=== PATIENT | male | born 1985 | race Caucasian/White ===

== ENCOUNTER 2017-01-12 20:26 | Emergency (ER) | payer BC ==
[~2017-01-12 20:26] MED LIST: ESOM40CA PO; LORA-434 PO; TRAZ150T49 PO; no-kno
[2017-01-12 20:40] VITALS: BP 99/48
[2017-01-12] MEDS ORDERED: LIDOCAINE 2%/EPI 1:100,000 20 ML VIAL. IJ ONE (21:30)
[2017-01-12] MEDS ORDERED: DIPHTH,PERTUSS(ACELL),TET TOX 0.5 ML DISP.SYRIN. VAX IM ONE (21:30)
--- NOTE | 2017-01-12 22:50 | PHYS DOC ---
Past History Past Medical History: Anxiety, Depression Past Surgical History: No Surgical History Smoking: Non-smoker Alcohol Use: None Drug Use: None Adult General Chief Complaint Chief Complaint: LACERATION/AVULSION HPI HPI Patient is a 31 year old male who presents with right thumb laceration. States he cut it on a broken light fixture just prior to arrival. He is right handed. Last tetanus unknown. Review of Systems Review of Systems Constitutional: Denies fever or chills HENT: Denies nasal congestion or sore throat Respiratory: Denies cough or shortness of breath Cardiovascular: Denies chest pain GI: Denies abdominal pain, nausea, vomiting Integument: Reports laceration. Neurologic: Denies headache Current Medications Current Medications Current Medications Medications (Trade) Dose Ordered Sig/Yadira Start Time Stop Time Status Last Admin Dose Admin Diphtheria/ Tetanus/Acell Pertussis (Boostrix) 0.5 ml ONCE ONCE 01/12/17 21:30 01/12/17 21:31 DC Lidocaine/ Epinephrine (Xylocaine 2%-Epi 1:100,000) 20 ml 1X ONCE 01/12/17 21:30 01/12/17 21:31 DC 01/12/17 21:50 20 ML Allergies Allergies Allergies Coded Allergies Type Severity Reaction Last Updated Verified No Known Drug Allergies 04/09/15 No Physical Exam Physical Exam Constitutional: Well developed, well nourished, no acute distress, non-toxic appearance. HENT: Normocephalic, atraumatic, bilateral external ears normal, oropharynx moist, nose normal. Eyes: conjunctiva normal, no discharge. Cardiovascular: no edema. Lungs & Thorax: no respiratory distress. Abdomen: nondistended. Skin: see extremity exam below Extremities: right thumb with 2 cm flap laceration over dorsal IP joint, intact ROM with flexion/extension, sensation intact to fingertip, cap refill < 2 sec, radial pulse 2+. Neurologic: Alert and oriented X 3 Current Patient Data Vital Signs Vital Signs Date Time Temp Pulse Resp B/P (MAP) Pulse Ox O2 Delivery O2 Flow Rate FiO2 01/12/17 20:40 98.3 64 18 96 Room Air EKG EKG [] Radiology/Procedures Radiology/Procedures [] Course & Med Decision Making Course & Med Decision Making Pertinent Labs and Imaging studies reviewed. (See chart for details) The patient presents with thumb laceration. Tetanus updated. Wound irrigated by ED RN. I ordered XR to evaluate for glass foreign body. He states the broken glass is very thick & he is certain that no fragments broke off into the wound. He declines imaging. Lac repair by me. Dressing & alumafoam splint applied by RN. Recommend wound care, follow up in 7 days for suture removal. Come back for wound infection or otherwise worsening condition. Discharged home in stable & improved condition. [] Dragon Disclaimer Dragon Disclaimer This chart was dictated in whole or in part using Voice Recognition software in a busy, high-work load, and often noisy Emergency Department environment. It may contain unintended and wholly unrecognized errors or omissions. Laceration Repair Lac Repair Indication: thumb laceration Procedure: The patient was placed in the appropriate position and anesthesia around the laceration was achieved by digital block with 2% lidocaine with epinephrine. Had to inject additional lidocaine into the wound itself as digital block was effective to the entire thumb except the flap portion of the laceration The area was then irrigated with a copious amount of NS by the ED RN. The laceration was repaired using 4 simple interrupted sutures with 5-0 ethilon. The wound area was then dressed with gauze & an alumafoam splint. Total repaired wound length: 2 cm. The patient tolerated the procedure well. Complications: none. Departure Departure: Impression: Primary Impression: Thumb laceration Disposition: 01 HOME, SELF-CARE Condition: STABLE Referrals: RUPALI CARTER (PCP) Patient Instructions: Laceration Care, Adult, [id number] Additional Instructions: You were seen in the emergency department today for thumb laceration. It was repaired with sutures. Please keep clean and dry. Wash twice a day with soap and water and apply triple antibiotic ointment. Cover with gauze while working. Use the splint to try to prevent excessive bending. Follow-up here or with primary care in 7 days for removal of sutures. Come back sooner for fever, redness, warmth, swelling around the wound, any otherwise worsening condition UZMA CASTANO MD Jan 12, 2017 22:50
== END 2017-01-12 22:55 | disposition home or self-care (01) ==
LOC: ER 20:26
DX: S61.011A Laceration without foreign body of right thumb without damage to nail, initial encounter (principal); W25.XXXA Contact with sharp glass, initial encounter; Y93.89 Activity, other specified; Y92.89 Other specified places as the place of occurrence of the external cause; Y99.8 Other external cause status
CPT/HCPCS: 12001; 90471; 90715; 99284-25

== ENCOUNTER → 2018-12-15 | Outpatient (CLI) | payer OTHER ==
[~2018-12-15] MED LIST changes: +IOHEXOL 240 MG/ML 50ML VIAL. ONE; +IOHEXOL 300 MG/ML 75 ML VIAL. IV ONE; +LORA-254 PO; -LORA-434 PO
--- NOTE | 2018-12-15 15:40 | RAD ---
CT ABD PELV W/ORAL IV CONTRAST Indication: Left lower quadrant abdominal pain. Exposure: One or more of the following individualized dose reduction techniques were utilized for this examination: 1. Automated exposure control 2. Adjustment of the mA and/or kV according to patient size 3. Use of iterative reconstruction technique. Technique: Intravenous contrast was given. Oral contrast was given. Lung bases are clear. Lung bases are essentially clear. No evidence of pericardial effusion. Liver is unremarkable. Spleen is unremarkable. No evidence of pancreatic abnormality. No adrenal mass. Kidneys enhance symmetrically without evidence of hydronephrosis or mass. No calcified gallstone. Aorta is nonaneurysmal. No significant lymph node enlargement. No significant small bowel distention. No evidence of acute colitis. There is moderate retained stool in the colon. Appendix is normal. No evidence of pneumoperitoneum or ascites. Prostate gland measures 3.5 x 4.2 cm transverse dimensions. No significant urinary bladder wall thickening. No evidence of aggressive bone destruction. IMPRESSION: No evidence of acute abnormality in the abdomen or pelvis. Moderate stool in the colon. Electronically signed by: Arnlodo Marquis MD (12/15/2018 3:36 PM) [id number]
== END | disposition home or self-care (01) ==
LOC: CT 12:59
PROVIDERS: ATTEND Registered Nurse
DX: R10.32 Left lower quadrant pain (principal)
CPT/HCPCS: 74177; Q9967

== ENCOUNTER 2019-12-27 21:28 | Emergency (ER) | payer OTHER ==
[~2019-12-27] VITALS: Ht 185.4 cm; Wt 105.8 kg
[~2019-12-27 21:28] MED LIST changes: -IOHEXOL 240 MG/ML 50ML VIAL. ONE; -IOHEXOL 300 MG/ML 75 ML VIAL. IV ONE
--- NOTE | 2019-12-27 21:36 | PHYS DOC ---
Past History Past Medical History: Anxiety, Depression Past Surgical History: No Surgical History Smoking: Non-smoker Alcohol Use: None Drug Use: None General Adult HPI: HPI: ".. I ve be short of breath... all day...".." I just seen [facility] yesterday.. and he started me on Wellbutrin and Aderall again... I have been off my meds for 6 months... and I think .. I am having a stress reaction... my sister had to go back in the hospital... and lots of other stressful things in my life...".. " I just feel maybe a little short of breath..and little wheeze... " Patient is a 34 year old male who presents with above hx and complaints dyspnea and anxiety. Patient just recently restarted on Adderall and Wellbutrin after being off 6 months. Patient has long history of anxiety and depression. Patient has been under increased social pressures and family stresses. Sister readmitted to hospital at after complication. Patient denies any history of fever or chills. Has had some wheezing. No specific ill contacts. No history of travel. No history of immunosuppression. Follows with Nik [facility]. Patient reports he does use caffeine products to excess. Review of Systems: Review of Systems: Constitutional: Denies fever or chills Eyes: Denies change in visual acuity HENT: Denies nasal congestion or sore throat Respiratory: Complaints of dyspnea., Cardiovascular: Denies chest pain or edema GI: Denies abdominal pain, nausea, vomiting, bloody stools or diarrhea : Denies dysuria Musculoskeletal: Denies back pain or joint pain Integument: Denies rash Neurologic: Denies headache, focal weakness or sensory changes Endocrine: Denies polyuria or polydipsia Lymphatic: Denies swollen glands Psychiatric: Complaints of depression and anxiety Heart Score: HEART Score for Chest Pain: HEART Score for Chest Pain Response (Comments) Value History Moderately Suspicious 1 ECG Normal 0 Age < 45 0 Risk Factors No Risk Factors 0 Troponin < Normal Limit 0 Total 1 Risk Factors: Risk Factors: DM, Current or recent (<one month) smoker, HTN, HLP, family history of CAD, obesity. Risk Scores: Score 0 - 3: 2.5% MACE over next 6 weeks - Discharge Home Score 4 - 6: 20.3% MACE over next 6 weeks - Admit for Clinical Observation Score 7 - 10: 72.7% MACE over next 6 weeks - Early Invasive Strategies Family History: Family History: Noncontributory to presentation Current Medications: Current Meds: See nursing for home meds Allergies: Allergies: Allergies Coded Allergies Type Severity Reaction Last Updated Verified No Known Drug Allergies 04/09/15 No Physical Exam: PE: Constitutional: Well developed, well nourished, no acute distress, non-toxic appearance. [] HENT: Normocephalic, atraumatic, bilateral external ears normal, oropharynx reta st, no oral exudates, nose normal. [] Eyes: PERRLA, EOMI, conjunctiva normal, no discharge. [] Neck: Normal range of motion, no tenderness, supple, no stridor. [] Cardiovascular:Heart rate regular rhythm, no murmur [. Occasional PVC per monitor] Lungs & Thorax: Bilateral breath sounds equal apex with a few scattered wheezes auscultation [] Abdomen: Bowel sounds normal, soft, no tenderness, no masses, no pulsatile masses. [] Skin: Warm, dry, no erythema, no rash. [] Back: No tenderness, no CVA tenderness. [] Extremities: No tenderness, no cyanosis, no clubbing, ROM intact, no edema. [] No cording appreciated Neurologic: Alert and oriented X 3, normal motor function, normal sensory function, no focal deficits noted. [] Psychologic: Affect anxious judgement normal, mood normal. [] EKG: EKG: My interpretation of EKG shows a sinus rhythm at 73 bpm. Does have an occasional PVC. [] Radiology/Procedures: Radiology/Procedures: [][address] [address] IMAGING REPORT Signed PATIENT: ALAINA CHU ACCOUNT: [id number] : 1985 LOCATION: ER AGE: 34 SEX: M EXAM STATUS: REG ER ORD. PHYSICIAN: TONI VIEIRA MD REASON: Dyspnea PROCEDURE: CHEST PA & LATERAL Exam: Chest 2 views INDICATION: Dyspnea TECHNIQUE: Frontal and lateral views the chest Comparisons: None FINDINGS: The cardiomediastinal silhouette and pulmonary vessels are within normal limits. The lung and pleural spaces are clear. IMPRESSION: No acute cardiopulmonary process. Electronically signed by: Constantine Wiley MD (12/27/2019 10:17 PM) [id number] DICTATED AND SIGNED BY: CONSTANTINE WILEY MD DATE: 12/27/19 2217 CC: TONI VIEIRA MD; RUPALI CARTER ~ Course & Med Decision Making: Course & Med Decision Making Pertinent Labs and Imaging studies reviewed. (See chart for details) Patient to follow-up with . [facility]. Recheck blood pressure in both arms on follow-up. Patient must reduce caffeine intake. Patient return if any concerns. Use MDI 2 puffs 4 times a day. Impression: 1. History of anxiety 2. Reactive airway-viral versus allergies 3. Excessive caffeine use 4. Mild elevation in blood pressure-recheck on follow-up ( No previous hx HTN) 5. PVC's 6. Hx. of ADHD 7. Hx. Depression [] Dragon Disclaimer: Dragon Disclaimer: This electronic medical record was generated, in whole or in part, using a voice recognition dictation system. Departure Departure: Disposition: 01 HOME/RESIDENCE PRIOR TO ADM Condition: STABLE Referrals: RUPALI CARTER (PCP) Justification of Admission: Justification of Admission: Justification of Admission Dx: N/A Dragon Disclaimer This chart was dictated in whole or in part using Voice Recognition software in a busy, high-work load, and often noisy Emergency Department environment. It may contain unintended and wholly unrecognized errors or omissions. Dragon Disclaimer This chart was dictated in whole or in part using Voice Recognition software in a busy, high-work load, and often noisy Emergency Department environment. It may contain unintended and wholly unrecognized errors or omissions. TONI VIEIRA MD Dec 27, 2019 21:35
[2019-12-27 22:08] LABS: BASO # 0.1 x10^3/uL (0.0-0.2); BASO % 1 % (0-3); EOS # 0.1 x10^3/uL (0.0-0.7); EOS % 2 % (0-3); HEMATOCRIT 45.1 % (39.0-53.0); HEMOGLOBIN 15.5 g/dL (13.0-17.5); LYMPH # 2.1 x10^3/uL (1.0-4.8); LYMPH % 31 % (24-48); MEAN CORPUSCULAR HEMOGLOBIN 30 pg (25-35); MEAN CORPUSCULAR HGB CONC 34 g/dL (31-37); MEAN CORPUSCULAR VOLUME 88 fL (79-100); MONO # 0.7 x10^3/uL (0.0-1.1); MONO % 11 % (0-9); NEUT # 3.7 x10^3uL (1.8-7.7); NEUT % 55 % (31-73); PLATELET COUNT 205 x10^3/uL (140-400); RED BLOOD COUNT 5.12 x10^6/uL (4.30-5.70); RED CELL DISTRIBUTION WIDTH 13.1 % (11.5-14.5); WHITE BLOOD COUNT 6.7 x10^3/uL (4.0-11.0)
[2019-12-27 22:09] LABS: CALCIUM 9.2 mg/dL (8.5-10.1); CREATININE 1.2 mg/dL (0.7-1.3); GFR 69.3; POTASSIUM 3.7 mmol/L (3.5-5.1)
--- NOTE | 2019-12-27 22:19 | EKG ---
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
--- NOTE | 2019-12-27 22:20 | RAD ---
Exam: Chest 2 views INDICATION: Dyspnea TECHNIQUE: Frontal and lateral views the chest Comparisons: None FINDINGS: The cardiomediastinal silhouette and pulmonary vessels are within normal limits. The lung and pleural spaces are clear. IMPRESSION: No acute cardiopulmonary process. Electronically signed by: Constantine Garcia MD (12/27/2019 10:17 PM) [id number]
[2019-12-27 22:21] LABS: ALBUMIN 4.3 g/dL (3.4-5.0); DIRECT BILIRUBIN 0.2 mg/dL (0.0-0.2); MAGNESIUM 2.1 mg/dL (1.8-2.4); TOTAL BILIRUBIN 0.7 mg/dL (0.2-1.0); TOTAL PROTEIN 7.4 g/dL (6.4-8.2)
[2019-12-27] MEDS ORDERED: ASPIRIN CHEWABLE 81 MG TABLET. PO ONE (22:30)
[2019-12-27] MEDS ORDERED: IV RINGERS SOLUTION,LACTATED 1,000 ML IV SCH (22:30)
[2019-12-27 23:26] VITALS: BP 138/77
[2019-12-27] MEDS ORDERED: ALBUTEROL SULFATE 8GM INHALER. INH ONE (23:30)
[2019-12-27 23:51] LABS: BILIRUBIN,URINE NEG (NEG); CLARITY,URINE CLEAR; COLOR,URINE YELLOW; GLUCOSE,URINE NEG (NEG); NITRITE,URINE NEG (NEG); UROBILINOGEN,URINE 0.2 mg/dL (0.2 mg/dL)
[2019-12-27 23:52] LABS: BACTERIA,URINE 0 /HPF (0-FEW); BARBITURATES NEG (NEG); BENZODIAZEPINES NEG (NEG); CANNABINOIDS POS (NEG); COCAINE NEG (NEG); METHADONE NEG (NEG); OPIATES NEG (NEG); PHENCYCLIDINE NEG (NEG); RBC,URINE 0 /HPF (0-2); SQUAMOUS EPITHELIAL CELL,UR OCC /LPF; WBC,URINE RARE /HPF (0-4)
[2019-12-27 23:54] LABS: AMPHETAMINE/METHAMPHETAMINE POS (NEG)
== END 2019-12-27 23:32 | disposition home or self-care (01) ==
LOC: ER 21:28
DX: J45.909 Unspecified asthma, uncomplicated (principal); R03.0 Elevated blood-pressure reading, without diagnosis of hypertension; F41.9 Anxiety disorder, unspecified; F32.9 Major depressive disorder, single episode, unspecified; F90.9 Attention-deficit hyperactivity disorder, unspecified type; I49.3 Ventricular premature depolarization; F15.90 Other stimulant use, unspecified, uncomplicated
CPT/HCPCS: 36415; 71046; 80048; 80076; 80307; 81001; 82550; 83690; 83735; 83880; 84443; 84484; 85025; 85379; 85610; 85730; 93005; 94640; 99285; J7120; J7613